=== PATIENT | male | born 1985 | race Two or more races ===

== ENCOUNTER 2018-04-28 10:06 | Inpatient (IN) | payer SELFPAY ==
[2018-04-28] VITALS (7 sets, daily range): BP systolic 150–194; BP diastolic 99–129
[~2018-04-28] VITALS: Ht 170.2 cm; Wt 83.5 kg
--- NOTE | 2018-04-28 10:35 | NUR ---
ED Nurse Note: patient is a/o x 4 ambulatory pt, c/o left sided abdominal pain and blood in urine x 2-3 days; patient states he passed 'rock' in the urine about 1 month ago.
[2018-04-28 11:14] LABS: APPEARANCE,URINE CLEAR; BASOPHILS % (AUTO) 0.8 % (0.0-2.0); BILIRUBIN, URINE NEGATIVE (NEGATIVE); EOSINOPHILS % (AUTO) 1.7 % (0.0-3.0); GLUCOSE, URINE (UA) NEGATIVE (NEGATIVE); HEMATOCRIT 40.8 % (42.0-52.0); HEMOGLOBIN 13.9 G/DL (14.2-18.0); KETONES,URINE NEGATIVE (NEGATIVE); LEUKOCYTE ESTERASE ,URINE 1+ (NEGATIVE); LYMPHOCYTES % (AUTO) 19.4 % (20.0-45.0); MEAN CORPUSCULAR VOLUME 80 FL (80-99); MONOCYTES % (AUTO) 9.4 % (1.0-10.0); NEUTROPHILS % (AUTO) 68.6 % (45.0-75.0); NITRITE,URINE NEGATIVE (NEGATIVE); PH,URINE 6 (4.5-8.0); PLATELET COUNT 333 K/UL (150-450); PROTEIN,URINE 4+ (NEGATIVE); RED CELL DISTRIBUTION WIDTH 11.8 % (11.6-14.8); UROBILINOGEN,URINE NORMAL MG/DL (0.0-1.0); WHITE BLOOD COUNT 8.7 K/UL (4.8-10.8)
[2018-04-28 11:20] LABS: ANION GAP 12 mmol/L (5-15); BLOOD UREA NITROGEN 13 mg/dL (7-18); CARBON DIOXIDE 27 MMOL/L (21-32); CHLORIDE 99 MMOL/L (98-107); COLOR,URINE YELLOW; CREATININE 1.2 MG/DL (0.55-1.30); POTASSIUM 4.1 MMOL/L (3.5-5.1); SODIUM 138 MMOL/L (136-145)
--- NOTE | 2018-04-28 11:48 | Diagnostic Imaging Report ---
Indication: Left-sided abdominal pain and blood in urine x2-3 days Technique: Spiral acquisitions obtained through the abdomen and pelvis. No oral or IV contrast utilized, per urinary stone protocol. Multiplanar reconstructions were generated. Total dose length product 646.87 mGycm. CTDIvol(s) 12.1 mGy. Dose reduction achieved using automated exposure control Comparison: none Findings: There is a large calculus, measuring 22 mm in length by 7 mm transverse, in the orifice of the proximal right ureter. This results in mild to moderate left hydronephrosis, as well as perinephric fat stranding and a small amount of fluid tracking into Gerota's fascia. 2 smaller calculi are seen in the renal pelvis, and multiple small lower pole calyceal calculi are demonstrated. These measure up to 4 mm in diameter. No ureteral calculus is seen distal to the large proximal ureteral calculus. On the right, multiple calyceal calculi are noted measuring up to 5 mm in diameter. No ureteral calculi or hydronephrosis demonstrated. Lack of IV contrast limits assessment of the renal parenchyma. No gross renal parenchymal mass or cyst demonstrated. No bladder calculi are demonstrated. Some calcifications are seen in the prostate. The seminal vesicles appear unremarkable. Lack of IV contrast limits assessment of the other solid organs. The liver is somewhat enlarged, demonstrates normal attenuation. The gallbladder, bile ducts, pancreas, adrenals are unremarkable. The spleen is enlarged, measuring 14 cm long axis dimension. No retroperitoneal or mesenteric mass or adenopathy. No pelvic mass or adenopathy. The appendix is normal. No evidence of diverticulosis or diverticulitis. No small bowel distention. No free or loculated intraperitoneal gas or fluid is evident. The distal esophagus, stomach, duodenum are unremarkable. A calcified granuloma is seen at the right lung base. Some scarring is seen at both lung bases. The bones are unremarkable. Impression: Positive for 22 x 7 mm proximal left ureteral calculus, resulting in mild hydronephrosis, perinephric fat stranding, and a small amount of fluid tracking into along Gerota's fascia. Bilateral intrarenal calculi. No evidence of right ureteral obstruction Enlarged liver Splenomegaly Evidence of old granulomatous disease at the right lung base. The CT scanner at [facility] is accredited by the [employer] and the scans are performed using protocols designed to limit radiation exposure to as low as reasonably achievable to attain images of sufficient resolution adequate for diagnostic evaluation.
[2018-04-28] MEDS ORDERED: Ketorolac 30mg Inj IV ONE (12:15)
[2018-04-28] MEDS ORDERED: NKM (13:12)
[2018-04-28] MEDS ORDERED: Morphine Sulfate 4mg/ml Inj (IV/IM USE ONLY) IVP PRN (13:45)
[2018-04-28] MEDS ORDERED: Morphine Sulfate 4mg/ml Inj (IV/IM USE ONLY) IV PRN (13:45)
[2018-04-28] MEDS ORDERED: Mylanta II UD 30ml ORAL PRN (13:45)
[2018-04-28] MEDS ORDERED: Nitroglycerin Subl 0.4mg tab SL PRN (14:00)
--- NOTE | 2018-04-28 14:57 | NUR ---
called report to [facility] east- given to AIME Rn, pt. is stable for transfer
[2018-04-28] MEDS: D5 1/2NS 1,000 ML IV SCH (16:19)
[2018-04-28] MEDS: cefTRIAXone 1 GM in D5W 55 ML IVPB SCH (16:19)
--- NOTE | 2018-04-28 16:30 | NUR ---
NURSE NOTES: BP 181/117 and HR [address] Meier notified and ordered Clonidine 0.1 mg po q6 hours prn for SBP >160. Noted and carried out.
[2018-04-28 19:05] LABS: APPEARANCE,URINE CLOUDY; BILIRUBIN, URINE NEGATIVE (NEGATIVE); GLUCOSE, URINE (UA) NEGATIVE (NEGATIVE); KETONES,URINE 1+ (NEGATIVE); LEUKOCYTE ESTERASE ,URINE 1+ (NEGATIVE); NITRITE,URINE NEGATIVE (NEGATIVE); PH,URINE 7 (4.5-8.0); PROTEIN,URINE 3+ (NEGATIVE); UROBILINOGEN,URINE 1 MG/DL (0.0-1.0)
[2018-04-28 19:07] LABS: COLOR,URINE ORANGE
--- NOTE | 2018-04-28 19:18 | History & Physical ---
History and Physical History & Physicial Dictated for Int Med-Dr Mann no. [id number]. Perez Barahona MD Apr 28, 2018 19:18
--- NOTE | 2018-04-28 19:20 | NUR ---
NURSE NOTES:Patient received from MELITON SALOMON R.N.patient in bed welsh speaking A/A/AOX4. Patient denies any pain at thios time . no sob/no n/v noted at this time . patient ambulate to bathroom with steady gait . patient instructed to uses call light when needed . patient verbalized understanding . bed in low position at all times . will continue to monitor patient..
--- NOTE | 2018-04-28 19:26 | NUR ---
HAND-OFF: Report given to GREG Lira.
[2018-04-28] MEDS ORDERED: Miralax 17gm pkt ORAL PRN (21:00)
--- NOTE | 2018-04-28 21:15 | History and Physical Report ---
DATE OF ADMISSION: 04/28/2018 CHIEF COMPLAINT: The patient is a 32-year-old male who presents with chief complaint of left flank pain and blood in his urine. HISTORY OF PRESENT ILLNESS: It began approximately 25 days ago. The patient passed what he thought was blood covered stone. The patient did not have any pain at that time. Yesterday 04/27/2018, the patient noticed bright red blood in his urine. The patient states it has cleared today. The patient also had left flank pain. The patient presented to [place] emergency room. The patient was admitted for left flank pain and hematuria to rule out renal calculus. REVIEW OF SYSTEMS: CONSTITUTIONAL: The patient denies weight loss or weight gain. The patient denies fevers or chills. HEENT: The patient denies ear or throat pain. The patient denies headache. CARDIOVASCULAR: The patient denies palpitations or chest pain. CHEST: The patient denies wheeze or shortness of breath. ABDOMINAL: The patient complains of left flank pain as above. The patient denies nausea, vomiting, diarrhea, or constipation. GENITOURINARY: The patient complains of hematuria as above. The patient denies dysuria or increased frequency of urination. PAST MEDICAL HISTORY: Significant for hypertension, however, the patient is not on any medication. PAST SURGICAL HISTORY: The patient denies. CURRENT MEDICATIONS: The patient denies. ALLERGIES: No known drug allergies. SOCIAL HISTORY: The patient is single and works washing cars. The patient denies tobacco use. The patient admits to occasional alcohol use. PHYSICAL EXAMINATION: VITAL SIGNS: Temperature 97.0, respirations 16, pulse 94, blood pressure 158/99. GENERALLY: The patient is well-developed and well-nourished male, in no apparent distress. HEENT: Eyes, pupils equal and responsive to light and accommodation. Extraocular movements are intact. NECK: Supple without lymphadenopathy. CHEST: Lungs are clear to auscultation bilaterally without wheezes or rales. CARDIOVASCULAR: Regular rate. S1 and S2 normal without murmurs, rubs, or gallops. ABDOMEN: Soft, nontender, and nondistended. Positive bowel sounds. No evidence of hepatosplenomegaly. Currently, no rebound or guarding noted. EXTREMITIES: Negative for clubbing, cyanosis, or edema. RECTAL/GENITAL: Refused. NEUROLOGIC: Cranial nerves II through XII are grossly intact without focal deficits. Motor strength is 5/5 bilaterally. Deep tendon reflexes are 2+ plantar. LABORATORY STUDIES: CT scan of the abdomen revealed a 22 x 7 mm proximal left ureteral calculus resulting in hydronephrosis on the right side and perinephric fat stranding. WBC 3.7, hemoglobin 13.9, hematocrit 40.8, platelets 333,000. Sodium 138, potassium 4.1, chloride 99, CO2 25, BUN 16, creatinine 1.2, glucose 126. ASSESSMENT: This is a 32-year-old male. 1. Left ureteral calculus. 2. Left flank pain. 3. Uncontrolled hypertension. 4. Hematuria. 5. Hydronephrosis on the left. TREATMENT: 1. Left proximal ureteral calculus and left hydronephrosis. A Urology consultation has been obtained with Dr. Jackson Sherwood. We will follow recommendations of Urology. The patient has been started empirically on intravenous ceftriaxone. Urine culture is pending. 2. Uncontrolled hypertension. The patient has been started on clonidine 0.1 mg p.o. q.6 hours p.r.n. 3. Hypertension may be essential hypertension versus hypertension secondary to pain. 4. Hematuria this probably secondary to renal calculus as above. 5. Left flank pain secondary to renal calculi as above. The patient has been started empirically intravenous morphine sulfate. Perez Barahona M.D. DR: Michelle JOB#: [id number] CC:
[2018-04-28] MEDS: Heparin 5000 units/ml inj SUBQ SCH (21:31)
[2018-04-29] VITALS: BP 134/99
[2018-04-29] MEDS: D5 1/2NS 1,000 ML IV SCH ×2 (03:26→16:25)
[2018-04-29 04:00] VITALS: BP 152/88
[2018-04-29 07:35] LABS: BASOPHILS % (AUTO) 0.6 % (0.0-2.0); EOSINOPHILS % (AUTO) 3.4 % (0.0-3.0); HEMOGLOBIN 13.3 G/DL (14.2-18.0); LYMPHOCYTES % (AUTO) 25.3 % (20.0-45.0); MEAN CORPUSCULAR VOLUME 81 FL (80-99); MONOCYTES % (AUTO) 8.7 % (1.0-10.0); NEUTROPHILS % (AUTO) 62.1 % (45.0-75.0); PLATELET COUNT 340 K/UL (150-450); RED BLOOD COUNT 4.83 M/UL (4.70-6.10); RED CELL DISTRIBUTION WIDTH 11.5 % (11.6-14.8); WHITE BLOOD COUNT 7.6 K/UL (4.8-10.8)
--- NOTE | 2018-04-29 07:38 | NUR ---
NURSE NOTES: Received report from GREG Lira. Patient a/o x4 and asleep. Call light within reach. Will continue to monitor.
--- NOTE | 2018-04-29 07:38 | NUR ---
HAND-OFF: Report given Julio Arguello R.N. Patient in stable condition.
[2018-04-29 07:59] LABS: ALANINE AMINOTRANSFERASE 46 U/L (12-78); ALBUMIN 3.5 G/DL (3.4-5.0); ALBUMIN/GLOBULIN RATIO 0.8 (1.0-2.7); ALKALINE PHOSPHATASE 128 U/L (46-116); AMYLASE 77 U/L (25-115); ANION GAP 9 mmol/L (5-15); ASPARTATE AMINO TRANSFERASE 16 U/L (15-37); BILIRUBIN,TOTAL 0.4 MG/DL (0.2-1.0); BLOOD UREA NITROGEN 14 mg/dL (7-18); CALCIUM 9.6 MG/DL (8.5-10.1); CARBON DIOXIDE 28 MMOL/L (21-32); CHLORIDE 101 MMOL/L (98-107); CREATININE 1.3 MG/DL (0.55-1.30); POTASSIUM 3.9 MMOL/L (3.5-5.1); SODIUM 138 MMOL/L (136-145)
[2018-04-29 08:00] VITALS: BP 153/111
[2018-04-29] MEDS: Heparin 5000 units/ml inj SUBQ SCH (09:37)
--- NOTE | 2018-04-29 10:15 | Emergency Room Report ---
History of Present Illness General Chief Complaint: Abdominal Pain Source: Patient Present Illness HPI Patient presents with complaints of significant left-sided flank pain increased nausea denies any fevers or chills Pain ongoing for the past several days Sharp 8 out of 10 Some radiation to the lower abdomen Denies any dysuria He felt that he saw small amounts of stone with urination Denies any recent trauma as the pain worsened the patient presented to the ER Allergies: Coded Allergies: No Known Allergies (Unverified , 04/28/18) Patient History Past Medical History: see triage record Pertinent Family History: none Reviewed Nursing Documentation: PMH: Agreed; PSxH: Agreed Nursing Documentation-PMH Past Medical History: No History, Except For Hx Cardiac Problems: Yes Hx Hypertension: Yes Hx Cancer: No Hx Gastrointestinal Problems: No Hx Neurological Problems: No Review of Systems All Other Systems: negative except mentioned in HPI Physical Exam Vital Signs Date Time Temp Pulse Resp B/P (MAP) Pulse Ox O2 Delivery O2 Flow Rate FiO2 04/28/18 10:26 98.4 116 18 208/123 98 Room Air Sp02 EP Interpretation: reviewed, normal General Appearance: mild distress - Uncomfortable in pain Head: normocephalic, atraumatic Eyes: bilateral eye PERRL, bilateral eye EOMI ENT: hearing grossly normal, normal pharynx, TMs + canals normal, uvula midline Neck: full range of motion, supple, no meningismus, no bony tend Respiratory: lungs clear, normal breath sounds, no rhonchi, no respiratory distress, no retraction, no accessory muscle use Cardiovascular #1: normal peripheral pulses, regular rate, rhythm, no edema, no gallop, no JVD, no murmur Gastrointestinal: normal bowel sounds, non tender, soft, no mass, no organomegaly, non-distended, no guarding, no hernia, no pulsatile mass, no rebound Genitourinary: no CVA tenderness Musculoskeletal: normal inspection Neurologic: oriented x3, responsive, professor of geology III-XII nml as tested, motor strength/ tone normal, sensory intact Psychiatric: mood/affect normal Skin: normal color, no rash, warm/dry, palpation normal Lymphatic: normal inspection, no adenopathy Medical Decision Making Diagnostic Impression: Primary Impression: Urinary tract obstruction by kidney stone Additional Impression: Renal colic ER Course With the history exam and presentation, multiple differentials considered, including but not limited to appendicitis, gastritis, cholecystitis, diverticulitis Patient's CAT scan reveals significantly enlarged kidney stone causing hydronephrosis Patient pain did improve however again starting to return given the size and location In the patient's general presentation urology consultation is made and patient admitted for further care Labs Test 04/28/18 10:41 04/28/18 18:31 04/29/18 07:10 White Blood Count 8.7 K/UL (4.8-10.8) 7.6 K/UL (4.8-10.8) Red Blood Count 5.10 M/UL (4.70-6.10) 4.83 M/UL (4.70-6.10) Hemoglobin 13.9 G/DL (14.2-18.0) 13.3 G/DL (14.2-18.0) Hematocrit 40.8 % (42.0-52.0) 39.0 % (42.0-52.0) Mean Corpuscular Volume 80 FL (80-99) 81 FL (80-99) Mean Corpuscular Hemoglobin 27.3 PG (27.0-31.0) 27.5 PG (27.0-31.0) Mean Corpuscular Hemoglobin Concent 34.1 G/DL (32.0-36.0) 34.0 G/DL (32.0-36.0) Red Cell Distribution Width 11.8 % (11.6-14.8) 11.5 % (11.6-14.8) Platelet Count 333 K/UL (150-450) 340 K/UL (150-450) Mean Platelet Volume 7.1 FL (6.5-10.1) 7.0 FL (6.5-10.1) Neutrophils (%) (Auto) 68.6 % (45.0-75.0) 62.1 % (45.0-75.0) Lymphocytes (%) (Auto) 19.4 % (20.0-45.0) 25.3 % (20.0-45.0) Monocytes (%) (Auto) 9.4 % (1.0-10.0) 8.7 % (1.0-10.0) Eosinophils (%) (Auto) 1.7 % (0.0-3.0) 3.4 % (0.0-3.0) Basophils (%) (Auto) 0.8 % (0.0-2.0) 0.6 % (0.0-2.0) Urine Color Yellow [place] Urine Appearance Clear Cloudy Urine pH 6 (4.5-8.0) 7 (4.5-8.0) Urine Specific [place] 1.020 (1.005-1.035) 1.010 (1.005-1.035) Urine Protein 4+ (NEGATIVE) 3+ (NEGATIVE) Urine Glucose (UA) Negative (NEGATIVE) Negative (NEGATIVE) Urine Ketones Negative (NEGATIVE) 1+ (NEGATIVE) Urine Blood 5+ (NEGATIVE) 5+ (NEGATIVE) Urine Nitrite Negative (NEGATIVE) Negative (NEGATIVE) Urine Bilirubin Negative (NEGATIVE) Negative (NEGATIVE) Urine Urobilinogen Normal MG/DL (0.0-1.0) 1 MG/DL (0.0-1.0) Urine Leukocyte Esterase 1+ (NEGATIVE) 1+ (NEGATIVE) Urine RBC 20-30 /HPF (0 - 0) Tntc /HPF (0 - 0) Urine WBC 2-4 /HPF (0 - 0) 10-15 /HPF (0 - 0) Urine Squamous Epithelial Cells Occasional /LPF None /LPF (NONE/OCC) Urine Bacteria Few /HPF (NONE) Few /HPF (NONE) Urine Mucus Few /LPF (NONE/OCC) Sodium Level 138 MMOL/L (136-145) 138 MMOL/L (136-145) Potassium Level 4.1 MMOL/L (3.5-5.1) 3.9 MMOL/L (3.5-5.1) Chloride Level 99 MMOL/L (98-107) 101 MMOL/L (98-107) Carbon Dioxide Level 27 MMOL/L (21-32) 28 MMOL/L (21-32) Anion Gap 12 mmol/L (5-15) 9 mmol/L (5-15) Blood Urea Nitrogen 13 mg/dL (7-18) 14 mg/dL (7-18) Creatinine 1.2 MG/DL (0.55-1.30) 1.3 MG/DL (0.55-1.30) Estimat Glomerular Filtration Rate > 60 mL/min (>60) > 60 mL/min (>60) Glucose Level 126 MG/DL (74-106) 125 MG/DL (74-106) Calcium Level 10.0 MG/DL (8.5-10.1) 9.6 MG/DL (8.5-10.1) Activated Partial Thromboplast Time 33 SEC (23-33) Total Bilirubin 0.4 MG/DL (0.2-1.0) Aspartate Amino Transf (AST/SGOT) 16 U/L (15-37) Alanine Aminotransferase (ALT/SGPT) 46 U/L (12-78) Alkaline Phosphatase 128 U/L (46-116) Total Protein 7.9 G/DL (6.4-8.2) Albumin 3.5 G/DL (3.4-5.0) Globulin 4.4 g/dL Albumin/Globulin Ratio 0.8 (1.0-2.7) Amylase Level 77 U/L (25-115) Lipase 335 U/L (73-393) CT/MRI/US Diagnostic Results CT/MRI/US Diagnostic Results : Impression CT abdomen pelvisImpression: Positive for 22 x 7 mm proximal left ureteral calculus, resulting in mild hydronephrosis, perinephric fat stranding, and a small amount of fluid tracking into along Gerota's fascia. Bilateral intrarenal calculi. No evidence of right ureteral obstruction Enlarged liver Splenomegaly Evidence of old granulomatous disease at the right lung base. Last Vital Signs Date Time Temp Pulse Resp B/P (MAP) Pulse Ox O2 Delivery O2 Flow Rate FiO2 04/29/18 08:00 97.8 88 20 153/111 (125) 98 04/28/18 21:00 Room Air Status: improved Disposition: ADMITTED INPATIENT Condition: Serious Referrals: NOT CHOSEN IPA/,REFERRING (PCP) Eloise Thomas DO Apr 29, 2018 10:15
--- NOTE | 2018-04-29 10:51 | NUR ---
NURSE NOTES: Patient's diastolic BP [address] Mann notified and aware.
[2018-04-29 12:00] VITALS: BP 147/104
--- NOTE | 2018-04-29 14:01 | NUR ---
CASE MANAGEMENT:REVIEW 32 YR OLD MALE TO ER CC; ABDOMINAL PAIN AND BLOOD IN URINE SI: RENAL COLIC. UTI OBSTRUCTION 98.4 116 18 208/123 98% ON RA GLUCOSE+126 IS: 1L NS BOLUS IV TORADOL CT ABD/PELVIS : TO TELEMETRY IS: IV PEPCID Q12 IVF@75/HR IV ROCEPHIN Q24 :INTERQUAL CRITERIA MET
--- NOTE | 2018-04-29 15:11 | Internal Med Progress Note ---
Subjective Physician Name Ryan Mann Attending Physician Ryan Mann MD Current Medications Medications (Trade) Dose Ordered Sig/Lena Route PRN Reason Start Time Stop Time Status Last Admin Dose Admin Acetaminophen (Tylenol) 650 mg Q4H PRN ORAL T>100.5 04/28/18 13:45 05/28/18 13:44 Al Hydroxide/Mg Hydroxide (Mylanta II) 30 ml Q6H PRN ORAL dyspepsia 04/28/18 13:45 05/28/18 13:44 Ceftriaxone Sodium 1 gm/ Dextrose 55 ml @ 110 mls/hr Q24H IVPB 04/28/18 16:00 05/05/18 15:59 04/28/18 16:19 Clonidine HCl (Catapres Tab) 0.1 mg Q6H PRN ORAL SBP > 160mmHg 04/28/18 17:15 05/28/18 17:14 04/28/18 17:15 Dextrose (Dextrose 50%) Q30M PRN IV Hypoglycemia 04/28/18 13:45 05/28/18 13:44 Dextrose (Dextrose 50%) 50 ml Q30M PRN IV Hypoglycemia 04/28/18 13:45 05/28/18 13:44 Dextrose/Sodium Chloride 1,000 ml @ 75 mls/hr [id number] IV 04/28/18 13:45 05/28/18 13:44 04/29/18 03:26 Diphenhydramine HCl (Benadryl) 25 mg Q6H PRN ORAL Itching/Pruritis 04/28/18 13:45 05/28/18 13:44 Famotidine (Pepcid I.v.) 20 mg Q12HR IVP 04/28/18 21:00 05/28/18 20:59 04/29/18 09:37 Heparin Sodium (Porcine) (Heparin 5000 units/ml) 5,000 units EVERY 12 HOURS SUBQ 04/28/18 21:00 05/28/18 20:59 04/29/18 09:37 Morphine Sulfate (Morphine Sulfate) 2 mg EVERY 4 HOURS PRN IVP Moderate Pain (Pain Scale 4-6) 04/28/18 13:45 05/05/18 13:44 Morphine Sulfate (Morphine Sulfate) 4 mg EVERY 2 HOURS PRN IV Severe Pain (Pain Scale 7-10) 04/28/18 13:45 05/05/18 13:44 Nitroglycerin (Ntg) 0.4 mg Q5MIN X 3 DOSES PRN SL Prn Chest Pain 04/28/18 14:00 05/28/18 13:59 Ondansetron HCl (Zofran) 4 mg Q6H PRN IVP Nausea & Vomiting 04/28/18 13:45 05/28/18 13:44 Polyethylene Glycol (Miralax) 17 gm HSPRN PRN ORAL Constipation 04/28/18 21:00 05/28/18 20:59 Temazepam (Restoril) 15 mg HSPRN PRN ORAL Insomnia 04/28/18 21:00 05/05/18 20:59 Allergies: Coded Allergies: No Known Allergies (Unverified , 04/28/18) Subjective C/O left side abdomen pain, No Nausea or Vomiting Objective Last Vital Signs Date Time Temp Pulse Resp B/P (MAP) Pulse Ox O2 Delivery O2 Flow Rate FiO2 04/29/18 12:00 97.8 85 20 147/104 (118) 98 04/29/18 09:00 Room Air Laboratory Tests Test 04/28/18 18:31 04/29/18 07:10 Urine Color [place] Urine Appearance Cloudy Urine pH 7 (4.5-8.0) Urine Specific [place] 1.010 (1.005-1.035) Urine Protein 3+ (NEGATIVE) H Urine Glucose (UA) Negative (NEGATIVE) Urine Ketones 1+ (NEGATIVE) H Urine Blood 5+ (NEGATIVE) H Urine Nitrite Negative (NEGATIVE) Urine Bilirubin Negative (NEGATIVE) Urine Urobilinogen 1 MG/DL (0.0-1.0) H Urine Leukocyte Esterase 1+ (NEGATIVE) H Urine RBC Tntc /HPF (0 - 0) H Urine WBC 10-15 /HPF (0 - 0) H Urine Squamous Epithelial Cells None /LPF (NONE/OCC) Urine Bacteria Few /HPF (NONE) White Blood Count 7.6 K/UL (4.8-10.8) Red Blood Count 4.83 M/UL (4.70-6.10) Hemoglobin 13.3 G/DL (14.2-18.0) L Hematocrit 39.0 % (42.0-52.0) L Mean Corpuscular Volume 81 FL (80-99) Mean Corpuscular Hemoglobin 27.5 PG (27.0-31.0) Mean Corpuscular Hemoglobin Concent 34.0 G/DL (32.0-36.0) Red Cell Distribution Width 11.5 % (11.6-14.8) L Platelet Count 340 K/UL (150-450) Mean Platelet Volume 7.0 FL (6.5-10.1) Neutrophils (%) (Auto) 62.1 % (45.0-75.0) Lymphocytes (%) (Auto) 25.3 % (20.0-45.0) Monocytes (%) (Auto) 8.7 % (1.0-10.0) Eosinophils (%) (Auto) 3.4 % (0.0-3.0) H Basophils (%) (Auto) 0.6 % (0.0-2.0) Activated Partial Thromboplast Time 33 SEC (23-33) Sodium Level 138 MMOL/L (136-145) Potassium Level 3.9 MMOL/L (3.5-5.1) Chloride Level 101 MMOL/L (98-107) Carbon Dioxide Level 28 MMOL/L (21-32) Anion Gap 9 mmol/L (5-15) Blood Urea Nitrogen 14 mg/dL (7-18) Creatinine 1.3 MG/DL (0.55-1.30) Estimat Glomerular Filtration Rate > 60 mL/min (>60) Glucose Level 125 MG/DL (74-106) H Calcium Level 9.6 MG/DL (8.5-10.1) Total Bilirubin 0.4 MG/DL (0.2-1.0) Aspartate Amino Transf (AST/SGOT) 16 U/L (15-37) Alanine Aminotransferase (ALT/SGPT) 46 U/L (12-78) Alkaline Phosphatase 128 U/L (46-116) H Total Protein 7.9 G/DL (6.4-8.2) Albumin 3.5 G/DL (3.4-5.0) Globulin 4.4 g/dL Albumin/Globulin Ratio 0.8 (1.0-2.7) L Amylase Level 77 U/L (25-115) Lipase 335 U/L (73-393) Microbiology Date/Time Source Procedure Growth Status 04/28/18 18:31 Straight Cath Urine Culture - Preliminary NO GROWTH Resulted Intake and Output 04/28/18 04/29/18 19:00 07:00 Intake Total 95 ml 675 ml Balance 95 ml 675 ml Intake Oral 20 ml IV Total 75 ml 675 ml # Voids 1 2 # Bowel Movements 1 Objective General: No acute distress, awake and alert HEENT: NCAT, sclera anicteric, PERRL, EOMI. Neck: Supple, no significant jugular venous distention, Lungs: Good inspiratory effort, clear to auscultation bilaterally, no Wheeze or Rales. Heart: Regular rate and rhythm, normal S1/S2, no murmurs Abdomen: soft, Left LQ tender, nondistended. Normoactive bowel sounds. / Rectal: Refused and deferred. Extremities: No Cyanosis , clubbing or edema. Neuro: A&O x 3, Able to move all extremities Skin: warm, no rashes or lesions Psych: Normal mood and affect Assessment/Plan Assessment/Plan 1. Left ureteral calculus. 2. Left flank pain. 3. Uncontrolled hypertension. 4. Hematuria. 5. Hydronephrosis on the left. Plan: F/U with Urology recommendations IVF Pain medications Ryan Mann MD Apr 29, 2018 15:11
[2018-04-29 16:00] VITALS: BP 146/104
--- NOTE | 2018-04-29 16:20 | NUR ---
NURSE NOTES: Patient wants to be d/c and Dr. Mann notified. Dr. Mann ordered d/c home. Noted and carried out.
[2018-04-29] MEDS: cefTRIAXone 1 GM in D5W 55 ML IVPB SCH (17:14)
--- NOTE | 2018-04-29 17:30 | NUR ---
NURSE NOTES: Confirm with Dr. Mann one more time patient's diastolic BP [address] Mann ordered ok to be d/c.
[2018-04-29] MEDS ORDERED: D5 1/2NS 1000ml IV ONE (18:19)
--- NOTE | 2018-04-29 18:20 | NUR ---
NURSE NOTES: Discharge instruction was given and all belongings checked. Removed IV. Patient discharged in stable condition.
--- NOTE | 2018-05-01 11:44 | Discharge Summary ---
Discharge Summary Discharge Summary _ DATE OF ADMISSION: 04/28/2018 DATE OF DISCHARGE: 1119 DISCHARGED BY: Dr. Mann REASON FOR ADMISSION: 32 years old male presented with chief complaint of left flank pain and blood in the urine. Vital signs revealed elevated blood pressure 208/103. Laboratory workup revealed no leukocytosis, stable hemoglobin hematocrit. Stable electrolytes and renal parameters. Urinalysis revealed hematuria and +4 protein, no evidence of UTI. CT of the abdomen and pelvis revealed 22 x 7 mm proximal left ureteral calculus , resulting in mild hydronephrosis, perinephric fat stranding. Bilateral intrarenal calculi noted as well . No evidence of right ureteral obstruction. Enlarged liver. Splenomegaly. Patient was admitted for further management HOSPITAL COURSE: Patient admitted to medical surgical floor and started on generous IV hydration. Pain management wasaddressed. Patient was started on empiric antibiotic. Blood pressure was managed with clonidine to bring blood pressure under control. DVT and GI prophylaxis provided. Bowel regimen instituted. Pain was subsequently controlled , and patient wanted to be discharged. Laboratory workup was stable. Blood pressure improved. Patient able to void . Patient was stable for discharge . Outpatient follow-up with urologist. Due to rapid and unexpected improvement in patient condition, patient was discharged in 1 day. FINAL DIAGNOSES: Left ureteral calculus Left flank pain Left hydronephrosis Hematuria Uncontrolled blood pressure, possibly due to pain-resolved Bilateral nephrolithiasis DISCHARGE MEDICATIONS: List of medication provided to patient DISCHARGE INSTRUCTIONS: Patient was discharged home . Follow up with urologist. I have been assigned to dictate discharge summary for this account. I was not involved in the patient's management. Pattie Oliveira NP May 01, 2018 11:44
== END 2018-04-29 18:20 | disposition home or self-care (01) | DRG 694 ==
LOC: EMR 10:59 → 3E 12:58 → EDBEDREQ 14:00
DX: N13.2 Hydronephrosis with renal and ureteral calculous obstruction (principal); R31.9 Hematuria, unspecified; R03.0 Elevated blood-pressure reading, without diagnosis of hypertension
CPT/HCPCS: 36415; 74176; 80048; 80053; 81001; 81003; 82150; 83690; 85025; 85730; 87086; 96361; 96374; 99285